=== PATIENT | male | born 1935 | race Caucasian/White ===

== ENCOUNTER → 2017-03-17 | Outpatient (CLI) | payer OTHER ==
[2017-03-17 17:26] LABS: HEMOGLOBIN 17.4 g/dL (14.0-18.0); MONOCYTES % (AUTO) 9.2 % (5-15)
[2017-03-17 17:29] LABS: BASOPHILS # (AUTO) 0.26 10*3/UL; BASOPHILS % (AUTO) 3.1 % (0-1); EOSINOPHILS # (AUTO) 0.21 10*3/UL; EOSINOPHILS % (AUTO) 2.5 % (0-8); HEMATOCRIT 50.3 % (42.0-52.0); LYMPHOCYTES # (AUTO) 1.78 10*3/uL; MEAN CORPUSCULAR HEMOGLOBIN 31.7 PG (27-31); MEAN CORPUSCULAR HGB CONC 34.6 g/dL (33-37); MEAN CORPUSCULAR VOLUME 91.6 FL (80-90); MEAN PLATELET VOLUME 10.1 FL (7.4-12.2); MONOCYTES # (AUTO) 0.76 10*3/UL (0.3-0.8); NEUTROPHILS # (AUTO) 5.27 10*3/UL; NEUTROPHILS % (AUTO) 63.6 % (50-80); RED BLOOD COUNT 5.49 10^6/uL (4.70-6.10)
[2017-03-17 17:31] LABS: BUN/CREATININE RATIO 16.66 (6-20); CALCIUM 9.9 mg/dL (8.7-10.7); CHOL/HDL RATIO 2.32 RATIO (0-4.0); LDL CHOLESTEROL,CALCULATED 75.4 mg/dL; SERUM ALBUMIN 4.1 g/dL (3.5-4.8)
[2017-03-17 17:36] LABS: WBC MORPHOLOGY COMMENT NORMAL MORPHOLOGY (NORM)
[2017-03-17 17:37] LABS: PLATELET MORPHOLOGY COMMENT NORMAL MORPHOLOGY (NORM); RBC MORPHOLOGY COMMENT NORMAL MORPHOLOGY (NORM)
[2017-03-17 19:19] LABS: FREE T4 (FREE THYROXINE) 1.15 ng/dL (0.93-1.71)
== END ==
LOC: MOB LAB 15:52
DX: C61 Malignant neoplasm of prostate (principal); J45.909 Unspecified asthma, uncomplicated; E66.9 Obesity, unspecified; E55.9 Vitamin D deficiency, unspecified
CPT/HCPCS: 36415; 80053; 80061; 82306; 84153; 84439; 84443; 85025

== ENCOUNTER 2017-04-03 16:04 | Emergency (ER) | payer OTHER ==
[2017-04-03] MEDS ORDERED: HEPARIN 5000 UNIT/1 ML ONE (16:32)
[2017-04-03] MEDS ORDERED: HEPARIN 5000 UNIT/1 ML IV ONE (16:33)
[2017-04-03 17:00] VITALS: RESP 18; TEMP 97.3
--- NOTE | 2017-04-03 17:17 | PDOC ---
Chest Pain HPI - General Chief Complaint: Upper Extremity Problem/Injury Stated Complaint: elevated Troponin Date Seen by Provider: 04/03/17 Time Seen by Provider: 16:05 Source: Patient, RN/MD, EMS Exam Limitations: POSITIVE: No limitations Treatment Prior to Arrival: REPORTS: Aspirin Nurse's Notes Reviewed & Considered: Yes EMS Report Reviewed & Considered: Verbal - History of Present Illness Initial Comments: The patient is a 81-year-old male. He states that last night around 2 AM he was awakened with bilateral arm pain and also some's substernal chest pain. This resolved after one or 2 hours. He was able to return to sleep. He made an appointment with his primary care provider for this morning and he was seen over at the primary care clinic. His primary care provider did an electrocardiogram which is normal. He also ordered cardiac enzymes and found his troponin to be elevated at 5.04; normal limits for our lab is less than 0.04. CK-MB was also elevated at 44; upper limits for lab is 5.0 patient received aspirin at the clinic, for chewed baby aspirin and then he called the ambulance who transported him to the emergency room. Patient is presently asymptomatic. Patient denies any medical problems except asthma for which he takes Symbicort. He is on no other medications. States he is allergic to penicillin and shellfish. He has had a hernia repair but no other surgery. Complete metabolic panel was normal. White blood cell count 8170, hemoglobin 17.1, hematocrit 49.8. Coag panel normal Body Location Affected: REPORTS: Chest Timing: REPORTS: Abrupt, Improved Duration: 1-3 hours (Chest pain presently resolved; onset of pain was around 2 AM) Severity: Moderate (7 or 8 on a scale of 10) Gone now, lasted (minutes):: 120 Context: REPORTS: Sleep Quality: REPORTS: Aching, "Pain" Radiation: REPORTS: Arm (R), Arm (L) Associated Symptoms: DENIES: Nausea, Vomiting, Diaphoresis, Shortness of Breath , Hurts to Breathe, Palpitations, Productive Cough (blood), Productive Cough ( sputum), Weakness, Dizziness Modifying Factors: improves with: None Reported Similar Symptoms Previously: No Recently seen/treated/hospitalized: Yes (seen in clinic earlier today as above) Any Prior Injuries Related to Current Complaint?: No - Patient Home Medications Home Medications: Home Medications Budesonide/Formoterol Fumarate [Symbicort] 2 puff INH BID #1 inh 03/06/17 - Patient Allergies Allergies/Adverse Reactions: Allergies Allergy/AdvReac Type Severity Reaction Status Date / Time Penicillins Allergy Severe HIVES Verified 04/03/17 16:16 shellfish derived Allergy Intermediate SWELLING Verified 04/03/17 16:16 Past Medical History - heen HEENT History: Hard of Hearing, Other (please comment) Additional HEENT History: left ear hard of hearing Cardiovascular History: Other (please comment) Additional Cardiovasular History: heart murmur Respiratory History: Asthma, COPD, Other (please comment) Additional Respiratory History: 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 Gastrointestinal History: Other (please comment) Additional Gastrointestinal History: HERNIA FROM LIFTING-REPAIRED Genitourinary History: Denies History Endocrine History: Denies History Musculoskeletal History: Other (please comment) Prosthesis or Implant: No Additional Musculoskeletal History: BONE REMOVAL IN LEFT KNEE AFTER INJURY Neurological History: Denies History Blood Disorders: Denies History Psychiatric History: Denies History History of Sexually Transmitted Diseases: No Cancer History: Skin Cancer Treatment / Date(s) of Treatment: RADIATION 2011 In Past Year Been Physically Harmed or Verbally Threatened: No History of MDRO: No History of Other Communicable Diseases: No Tobacco Use: Never Smoker Alcohol Use: Other Substance Use Type: None Previous Surgical History: Yes Type / Date of Surgery: LEFT KNEE AND RIGHT INGUINAL HERNIA Anesthesia Reactions: No Malignant Hyperthermia: No Significant Family History: No pertinent family hx Past Medical History Reviewed: Reviewed - No Changes ROS - Limitations ROS Limitations: No Limitations Constitution: REPORTS: Denies Symptoms Cardiovascular: REPORTS: Chest Pain Respiratory: REPORTS: Denies Resp Symptoms Neurological: REPORTS: Denies Neuro Symptoms Gastrointestinal: REPORTS: Denies GI Symptoms Endocrine: REPORTS: Denies Symptoms Musculoskeletal: REPORTS: Denies MS Symptoms Genitourinary: REPORTS: Denies Symptoms Eyes: REPORTS: Denies Symptoms ENT: REPORTS: Denies Symptoms Skin: REPORTS: Denies Skin Symptoms Lympathic: REPORTS: Denies Lympathic Symptoms Immunologic: POSITIVE: Denies Symptoms Psychiatric: POSITIVE: Denies Psych Symptoms Chest Pain PE - General Appearance General Appearance: REPORTS: Alert, Cooperative, No Acute Distress, No Evidence of Trauma - HEENT HEENT: POSITIVE: Head Inspection Nml, Eyes Inspection Nml, Ears Inspection Nml, Nose Inspection Nml, Oral/Dental Inspect. Nml, Pharynx Inspect. Nml, PERRL, EOMI - Neck Neck: REPORTS: Normal Inspection, No Carotid Bruit - Respiratory Respiratory: REPORTS: No Respiratory Distress, Breath Sounds Normal, Chest Non- Tender - Cardiovascular Cardiovascular: REPORTS: Regular Rate and Rhythm, Heart Sounds Normal, Equal Pulses, Strong Pulses, No Murmur, No Gallop, No Friction Rub, No JVD Peripheral Pulses: Radial (R): 2+, Radial (L): 2+ - Abdomen Abdomen: Soft: (All Quadrants), Normal Bowel Sounds: (All Quadrants), Denies Tenderness: (All Quadrants), No Splenomegaly: (All Quadrants), No Hepatomegaly: (All Quadrants), No Guarding: (All Quadrants), No Rebound: (All Quadrants), No Palpable Pulse: (All Quadrants), No Palpabale Mass: (All Quadrants), No Distention: (All Quadrants), No Rigidity: (All Quadrants) - Skin Skin: REPORTS: Intact, Normal For Race, Warm, Dry, No Rash - Extremities Extremity: Non-Tender: (All Extremities), Normal ROM: (All Extremities), Normal Inspection: (All Extremities) - Neurological / Psychological Neurological: POSITIVE: Oriented X3, skin drier Normal As Tested, Motor Normal, Sensation Normal, 5, 6 Images - Complete Complete: 1 - Area of described chest pain 2 - Radiation into her arm 3 - Radiation into her arm Chest Pain Progress - Results Reviewed by me Lab Results Reviewed: Yes (elevated troponin and CK-MB as above) Lab Results:: Laboratory Results 04/03/17 Range/Units 16:20 PT 10.1 (9.7-11.4) secs INR 0.98 (0.00-5.90) N/A APTT 26.7 (22.6-31.3) SECS EKG Interpreted/Reviewed By Me:: Yes EKG Interpretation:: POSITIVE: Normal Sinus Rhythm, Normal Rate, Normal QRS, Normal ST/T - Patient's Progress Pain Medication Addressed: POSITIVE: Not Applicable (Patient pain free at this time) School/Work Release Addressed: POSITIVE: Not Applicable Re-Examine Time: 19:10 Re-Examine Comment: Patient remained pain-free while in the emergency room. Cardiology at [facility] contacted; this hospital is full and [place] [facility] [place] Spoke with Dr. Montero , cardiology and Dr. Ochoa, hospitalist who has accepted the patient. Patient was started on heparin, 4000 unit bolus and then 1000 units per hour per non-STEMI protocol. [place] [facility] [place]: POSITIVE: Unchanged, Re-Examined - Consult Consult (If Yes, Name of Consulting MD & Time Called): Yes (Dr. Montero, cardiology and hospitalist at [facility], 1907) Consulting MD will see pt:: POSITIVE: Recommended Transfer Counseled: POSITIVE: Patient, RE: Lab Results, RE: DX, RE: Need for F/U Patient Care Time - Estimated PCT Patient Care Time (In Minutes): 53 Vital Signs - Recent Vital Signs Vital Signs: Vital Signs (Last 8 hours) Temp Pulse Resp BP Pulse Ox 04/03/17 16:04 97.3 F 66 18 155/96 97 - VS Reviewed Vital Signs Reviewed: Yes Discharge Clinical Impression: Non-STEMI (non-ST elevated myocardial infarction) Discharge Disposition: Transferred to Short Term Facility Condition: Fair Date Decision to Transfer to Another Facility: 04/03/17 Time Decision to Transfer to Another Facility: 16:15
--- NOTE | 2017-04-03 17:19 | DI ---
XR CXR 1VW,04/03/2017 4:20 PM: Clinical History: Elevated troponins. Previous Exam: October 22, 2014 Findings: A single frontal radiograph of the chest is obtained, and demonstrates clear lungs. The cardiomediast inum and bony thorax are unremarkable. Overlying EKG leads are seen. Impression: No acute disease.
--- NOTE | 2017-04-03 17:25 | EKG ---
[address] [address] Measurements Intervals [place] Rate: 67 P: 55 AL: 182 QRS: 16 QRSD: 89 T: 87 QT: 389 QTc: 405 Interpretive Statements SINUS RHYTHM Compared to ECG 04/03/2017 14:43:19 No significant changes Electronically Signed On 04-03-17 17:58:28 MDT by Krunal Polk [email or web address]
== END 2017-04-03 17:45 | disposition home or self-care (01) ==
LOC: ER 16:04
DX: I21.4 Non-ST elevation (NSTEMI) myocardial infarction (principal); M79.602 Pain in left arm; M79.601 Pain in right arm; R79.89 Other specified abnormal findings of blood chemistry; R07.9 Chest pain, unspecified
CPT/HCPCS: 36415; 71010; 80053; 82553; 84484; 85025; 85610; 85730; 87088; 93005; 93010; 96374; 99285; J1644

== ENCOUNTER → 2017-04-03 | Outpatient (CLI) | payer OTHER ==
--- NOTE | 2017-04-03 14:37 | EKG ---
[address] [address] Measurements Intervals [place] Rate: 74 P: 59 GA: 172 QRS: 54 QRSD: 87 T: 84 QT: 381 QTc: 409 Interpretive Statements SINUS RHYTHM No previous ECG available for comparison Electronically Signed On 04-03-17 17:58:38 MDT by Krunal Polk [id number]
[2017-04-03 14:57] LABS: BASOPHILS % (AUTO) 1.2 % (0-1); EOSINOPHILS # (AUTO) 0.16 10*3/UL; HEMATOCRIT 49.8 % (42.0-52.0); HEMOGLOBIN 17.1 g/dL (14.0-18.0); LYMPHOCYTES # (AUTO) 1.59 10*3/uL; MEAN CORPUSCULAR HEMOGLOBIN 31.2 PG (27-31); MEAN CORPUSCULAR HGB CONC 34.3 g/dL (33-37); MEAN CORPUSCULAR VOLUME 90.9 FL (80-90); MEAN PLATELET VOLUME 9.4 FL (7.4-12.2); MONOCYTES # (AUTO) 0.78 10*3/UL (0.3-0.8); MONOCYTES % (AUTO) 9.5 % (5-15); NEUTROPHILS # (AUTO) 5.52 10*3/UL; NEUTROPHILS % (AUTO) 67.6 % (50-80); RED BLOOD COUNT 5.48 10^6/uL (4.70-6.10)
[2017-04-03 14:58] LABS: PLATELET MORPHOLOGY COMMENT NORMAL MORPHOLOGY (NORM); RBC MORPHOLOGY COMMENT NORMAL MORPHOLOGY (NORM); WBC MORPHOLOGY COMMENT NORMAL MORPHOLOGY (NORM)
[2017-04-03 15:13] LABS: CALCIUM 9.9 mg/dL (8.7-10.7); SERUM ALBUMIN 4.1 g/dL (3.5-4.8)
[2017-04-03 15:57] LABS: TROPONIN I 5.04 ng/mL (< 0.040)
== END ==
LOC: MOB LAB 14:26
PROVIDERS: ATTEND Physician Assistant
DX: R42 Dizziness and giddiness (principal); R06.02 Shortness of breath; R30.0 Dysuria
CPT/HCPCS: 36415; 80053; 82553; 84484; 85025; 87088; 93005; 93010

== ENCOUNTER → 2017-04-24 | Outpatient (CLI) | payer OTHER | LOC: MMPC 11:11 | DX: I35.0 Nonrheumatic aortic (valve) stenosis (principal); J45.909 Unspecified asthma, uncomplicated; K21.9 Gastro-esophageal reflux disease without esophagitis; C61 Malignant neoplasm of prostate; I25.10 Atherosclerotic heart disease of native coronary artery without angina pectoris; Z95.2 Presence of prosthetic heart valve | CPT/HCPCS: 99213; G0463 ==

== ENCOUNTER → 2017-05-17 | Outpatient (CLI) | payer OTHER ==
[2017-05-17 16:31] LABS: BASOPHILS # (AUTO) 0.11 10*3/UL; BASOPHILS % (AUTO) 1.5 % (0-1); EOSINOPHILS # (AUTO) 0.16 10*3/UL; EOSINOPHILS % (AUTO) 2.3 % (0-8); HEMATOCRIT 43.9 % (42.0-52.0); HEMOGLOBIN 14.9 g/dL (14.0-18.0); LYMPHOCYTES # (AUTO) 1.36 10*3/uL; MEAN CORPUSCULAR HEMOGLOBIN 31.3 PG (27-31); MEAN CORPUSCULAR HGB CONC 33.9 g/dL (33-37); MEAN CORPUSCULAR VOLUME 92.2 FL (80-90); MEAN PLATELET VOLUME 9.5 FL (7.4-12.2); MONOCYTES # (AUTO) 0.71 10*3/UL (0.3-0.8); NEUTROPHILS # (AUTO) 4.75 10*3/UL; NEUTROPHILS % (AUTO) 66.9 % (50-80); RED BLOOD COUNT 4.76 10^6/uL (4.70-6.10)
[2017-05-17 16:37] LABS: PLATELET MORPHOLOGY COMMENT NORMAL MORPHOLOGY (NORM); RBC MORPHOLOGY COMMENT NORMAL MORPHOLOGY (NORM); WBC MORPHOLOGY COMMENT NORMAL MORPHOLOGY (NORM)
== END ==
LOC: MOB LAB 15:39
DX: I35.0 Nonrheumatic aortic (valve) stenosis (principal); K21.9 Gastro-esophageal reflux disease without esophagitis
CPT/HCPCS: 36415; 80048; 85025

== ENCOUNTER 2017-09-14 11:41 | Inpatient (IN) ==
[2017-09-14] MEDS ORDERED: NORMAL SALINE 10 ML SYRINGE FLUSH IVP PRN ×2 (12:25→17:43)
[2017-09-14] MEDS ORDERED: DIPH,PERTUSS,TET(ADACEL) VAC/PF 0.5 ML (Tdap) IM ONE (12:25)
[2017-09-14 12:36] LABS: BILIRUBIN,URINE SMALL (NEG); CLARITY,URINE CLEAR (CLEAR); GLUCOSE, URINE (UA) NEGATIVE (NEG); NITRATE,URINE NEGATIVE (NEG); OCCULT BLOOD,URINE NEGATIVE (NEG); PH,URINE 6.5 (5.0-8.5); PROTEIN,URINE 100 mg/dl (NEG)
[2017-09-14 12:37] LABS: COLOR,URINE AMBER (Y)
[2017-09-14 12:44] LABS: URINE SAMPLE TYPE VOIDED SPECIMEN
--- NOTE | 2017-09-14 12:47 | EKG ---
[address] [address] Measurements Intervals [place] Rate: 84 P: FL: 0 QRS: 46 QRSD: 93 T: 79 QT: 372 QTc: 413 Interpretive Statements SINUS RHYTHM WANDERING BASELINE Compared to ECG 04/03/2017 16:39:04 No significant change Electronically Signed On 09-14-17 17:20:04 MDT by Krunal Polk [email or web address]
[2017-09-14 12:58] LABS: BASOPHILS # (AUTO) 0.05 10*3/UL; BASOPHILS % (AUTO) 0.5 % (0-1); EOSINOPHILS # (AUTO) 0.01 10*3/UL; EOSINOPHILS % (AUTO) 0.1 % (0-8); Hematocrit [HCT] 41.5 % (42.0-52.0); Hemoglobin [HGB] 14.3 g/dL (14.0-18.0); MEAN CORPUSCULAR HGB CONC 34.5 g/dL (33-37); MEAN PLATELET VOLUME 10.2 FL (7.4-12.2); MONOCYTES # (AUTO) 1.06 10*3/UL (0.3-0.8); MONOCYTES % (AUTO) 10.9 % (5-15); NEUTROPHILS # (AUTO) 7.79 10*3/UL; NEUTROPHILS % (AUTO) 80.1 % (50-80); RED BLOOD COUNT 4.61 10^6/uL (4.70-6.10)
[2017-09-14 12:59] LABS: PLATELET MORPHOLOGY COMMENT NORMAL MORPHOLOGY (NORM); RBC MORPHOLOGY COMMENT NORMAL MORPHOLOGY (NORM); WBC MORPHOLOGY COMMENT NORMAL MORPHOLOGY (NORM)
[2017-09-14 13:08] LABS: BLOOD UREA NITROGEN 24 mg/dL (7-22); LIPASE 67 IU/L (23-300); SERUM ALBUMIN 4.1 g/dL (3.5-4.8)
[2017-09-14] MEDS: Sodium Chloride 0.9% 1,000 ML PRIMARY IV ONE ×2 (13:09→17:58)
--- NOTE | 2017-09-14 13:53 | DI ---
CT Cervical Spine WO Contrast,09/14/2017 12:27 PM: Clinical History: Trauma Previous Exam: January 17, 2012 Findings: Multiple helically acquired CT images are obtained through the cervical spine without contrast, and d emonstrate diffuse degenerative changes of cervical spine worst at the C5/6 level with near complete loss of intervertebral disc height with endplate osteophyte formation and uncovertebral joint osteoph yte formation. There is some facet hypertrophy noted. The prevertebral soft tissues are unremarkable. The base of the skull is also unremarkable. The prevertebral soft tissues are unremarkable. The thyroid is unremarkable. The lung apices are clear. The major vascular structures are unremarkable. A few peripheral vascular calcifications are seen. Impression: Diffuse degenerative changes of the cervical spine without fractures.
--- NOTE | 2017-09-14 13:56 | DI ---
CT Head WO Contrast,09/14/2017 12:27 PM: Clinical History: Trauma Previous Exam: None at this facility. Findings: Multiple helically acquired CT images are obtained through the brain without contrast, and demonstrat e diffuse age-related volume loss. There is no mass, hemorrhage or midline shift. There is some thick ening of the soft tissues of the frontal scalp. No fractures are seen. Impression: No acute intracranial pathology.
--- NOTE | 2017-09-14 14:06 | DI ---
CT Maxfacial WO/con Face Sinus,09/14/2017 12:29 PM: Clinical History: Status post fall with facial trauma. Previous Exam: None at this facility. Findings: Multiple helically acquired CT images are obtained through the face without contrast, and demonstrate a slightly displaced fracture through the nasal bones worse on the right the left. The paranasal sinuses are unremarkable. Diffuse degenerative changes of the cervical spine are seen. The mandible is unremarkable. There is a heterogeneously lucent lesion within the sphenoid bone which demonstrates no evidence of e xpansion no cortical breakthrough and no evidence of periosteal reaction. This lesion is well-circumscribed with a narrow zone of transition. This is largely fat density. Impression: Displaced fracture of the right nasal bone of unknown chronicity. 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
--- NOTE | 2017-09-14 14:34 | DI ---
CT Chest W Contrast,09/14/2017 12:27 PM: Clinical History: Trauma. Previous Exam: None at this facility. Findings: Multiple helically acquired CT images are obtained through the chest following intravenous administra tion of 75 cc of Isovue 300, and demonstrate clear lungs. There is an endograft noted in the region of the aortic valve. Coronary calcifications are seen. Peripheral vascular calcifications are also noted. The thyroid is unremarkable. The pulmonary arteries are normal. There is no mediastinal lymphadenopathy. The upper abdomen is unremarkable. There are compression deformities involving the third and fourth superior endplates of the thoracic s pine. These are very mild in degree without significant loss of vertebral body height. Mild degenerative facet hypertrophy is noted as well. Impression: 1. Compression fractures of the superior endplates of the third and fourth thoracic vertebral bodies. These are mild in degree, and demonstrate no significant loss of intervertebral disc height.
--- NOTE | 2017-09-14 14:38 | DI ---
CT Abdomen/Pelvis W Contrast,09/14/2017 12:27 PM: Clinical History: Trauma Previous Exam: None at this facility. Findings: Multiple helically acquired CT images are obtained through the abdomen and pelvis following the intra venous administration of contrast. There is a fat-containing left inguinal hernia. Multiple colonic diverticula are noted without evidence of acute diverticulitis. The liver, gallbladder, spleen, pancreas, adrenals and kidneys are unremarkable. There is no mesenter ic or retroperitoneal lymphadenopathy. Multiple colonic diverticula are noted without evidence of acute diverticulitis. Diffuse degenerative changes of the spine are noted without acute fractures. Impression: No acute intra-abdominal pathology.
[2017-09-14] MEDS ORDERED: HYDROcodone-APAP 5 MG -325 MG TABLET PO PRN (17:43)
[2017-09-14] MEDS ORDERED: DOCUSATE 100 MG CAPSULE PO PRN (17:43)
[2017-09-14] MEDS ORDERED: ACETAMINOPHEN 325 MG TABLET PO PRN (17:43)
[2017-09-14] MEDS ORDERED: ONDANSETRON 4 MG/2 ML VIAL IVP PRN (17:43)
[2017-09-14] MEDS ORDERED: LIDOCAINE W/ SODIUM BICARB 0.5 ML SYR SUBD PRN (17:43)
[2017-09-14] MEDS ORDERED: CALCIUM CARBONATE 500 MG (TUMS) CHEWABLE TABLET PO PRN (17:43)
[2017-09-14] MEDS ORDERED: POTASSIUM CHLORIDE 20 MEQ TAB PO ONE (17:46)
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
[2017-09-14] MEDS: ERYTHROMYCIN BASE 1 GM EYE OINT EACH EYE SCH (20:45)
[2017-09-14] MEDS: Metoprolol TARTRATE Tab 25 MG TAB PO SCH (20:45)
[2017-09-14] MEDS: ATORVASTATIN 40 MG TABLET PO SCH (20:45)
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
[2017-09-15] MEDS: Non-Formulary Drug (Budesonide/Formoterol Fumarate [Symbicort] 2 PUFF) INH SCH ×2 (05:28→18:37)
[2017-09-15 07:04] LABS: BLOOD UREA NITROGEN 22 mg/dL (7-22)
[2017-09-15] MEDS: PANTOPRAZOLE 40 MG TABLET PO SCH (08:34)
[2017-09-15] MEDS: ERYTHROMYCIN BASE 1 GM EYE OINT EACH EYE SCH ×2 (08:34→20:47)
[2017-09-15] MEDS: Metoprolol TARTRATE Tab 25 MG TAB PO SCH ×2 (08:35→20:47)
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
[2017-09-15] MEDS: HYDROcodone-APAP 5 MG -325 MG TABLET PO PRN ×3 (11:35→20:46)
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
--- NOTE | 2017-09-15 14:52 | PDOC(PROG) ---
Date and Time of Service: 09/15/2017, 1450 Interval History: No chest pain, no shortness breath, no nausea or vomiting. Patient states that he felt much better after therapy and is really interested in working on balance. He states that is "tricky". He did very well with heat therapy per the physical therapy note and the patient notes that as well and the patient requests that he would like to stay through Monday to continue to work with therapy and pain control for his back and tongue. Objective : Data - Labs CBC and BMP: 09/14/17 12:50 09/15/17 06:30 Objective : Exam - General General Appearance: No Acute Distress, Cooperative Additional General Exam Details: Vital Signs (24 hrs) Temp Pulse Pulse Pulse Resp BP BP 09/15/17 13:00 97.6 F 71 20 121/50 09/15/17 08:11 97.2 F 61 20 103/56 09/15/17 04:38 97.2 F 68 20 125/54 09/15/17 04:05 09/15/17 03:00 66 09/15/17 01:00 97.4 F 73 20 127/60 09/14/17 21:00 87 18 120/65 09/14/17 19:45 09/14/17 19:00 74 74 18 09/14/17 16:47 97.8 F 74 18 138/56 09/14/17 16:31 98.6 F 82 18 137/81 09/14/17 16:24 74 74 18 Pulse Ox 09/15/17 13:00 94 09/15/17 08:11 95 09/15/17 04:38 93 09/15/17 04:05 93 09/15/17 03:00 09/15/17 01:00 93 09/14/17 21:00 09/14/17 19:45 90 09/14/17 19:00 09/14/17 16:47 96 09/14/17 16:31 95 09/14/17 16:24 - Head Additional Head Exam Details: Significant facial bruising. Scleral redness on the right, but not a hyphema. - ENT ENT Exam: Mucous Membranes Moist Additonal ENT Exam Details: Tongue and mouth look cleaner and polisher overall. This will take a while to heal. - Respiratory Respiratory Exam: Clear to Auscultation - Bilaterally, Breathing Non Labored - Cardiovascular Cardiovascular Exam: RRR, No Murmur, No Clicks, No Gallops, No Rubs, No JVD - GI/Abdominal GI/Abdominal Exam: Normal Bowel Sounds, Non Tender, Non Distended, Soft - Extremities Extremities Exam: No Clubbing Present, No Edema Present, No Cyanosis Present - Neurological Neurological Exam: Alert, Oriented x 3, No Facial Droop, Speech Intact / Clear, Moves All Extremities Equally - Psychiatric Psychiatric Exam: Normal Affect, Normal Mood Assessment and Plan - Patient Problems (1) Compression fx, thoracic spine Current Visit: Yes Status: Acute Code(s): S22.000A - Wedge compression fracture of unspecified thoracic vertebra, initial encounter for closed fracture Qualifiers: Encounter type: initial encounter Fracture type: closed Qualified Code(s) : S22.000A - Wedge compression fracture of unspecified thoracic vertebra, initial encounter for closed fracture (2) Syncope and collapse Current Visit: Yes Status: Acute Code(s): R55 - Syncope and collapse (3) Coronary artery disease Current Visit: Yes Status: Acute Code(s): I25.10 - Atherosclerotic heart disease of [place] coronary artery without angina pectoris Qualifiers: Coronary Disease-Associated Artery/Lesion type: [place] artery [place] vs. transplanted heart: [place] heart Associated angina: without angina Qualified Code(s): I25.10 - Atherosclerotic heart disease of [place] coronary artery without angina pectoris (4) Aortic valve disease Current Visit: Yes Status: Acute Code(s): I35.9 - Nonrheumatic aortic valve disorder, unspecified (5) Asthma Current Visit: Yes Status: Acute Code(s): J45.909 - Unspecified asthma, uncomplicated Qualifiers: Asthma severity: mild Asthma persistence: intermittent Asthma complication type: uncomplicated Qualified Code(s): J45.20 - Mild intermittent asthma, uncomplicated (6) Hypercholesterolemia Current Visit: Yes Status: Acute Code(s): E78.00 - Pure hypercholesterolemia , unspecified - Assessment / Plan Additional Assessment/Plan Details: In terms of the recent angioplasty in March, I curbside of the career guidance technician regarding length of Plavix therapy post angioplasty and 3 months would be a recommendation without stent placement. He can probably stop Plavix from that perspective. I am not aware of data for dual antiplatelet therapy for valvular replacement intravascularly or intra-arterially with catheter versus open heart valvular repair, so at this time I think that the patient's best bet would be to go on aspirin when he leaves the hospital. Continue to monitor with telemetry monitoring. Thus far no arrhythmias noted. I think the patient would benefit greatly from a Holter monitor. continue PT and OT. Balance therapy. Tylenol and Motrin for pain. I have opiates written, but would be very hesitant to discharge on opiates. Patient does have a plan to go home with Vonnie for further monitoring post hospital stay.
--- NOTE | 2017-09-15 16:15 | PT.PROG ---
Progress Note Progress Note: S: Pt. reported minimal pain in neck, even with movement. He said the massage and tape this morning helped. O: Pt. completed walk down to rehab center with contact guard. Pt. completed balance activities including a DGI, hurdles, steps, transfers, and cone drills. Dynamic gait index score: 10/13. Pt. was at 4/10 on RPE scale post treatment. A: Pt. tolerated balance and physical activity well today. He was able to pick and shovel man a cone off the floor with no pain and with good form. Pt. exhibited minor gait deviations throughout treatment, but he never required more that contact guard. Pain in neck/thoracic region was very minimal. P: Continue with functional activity and modalities for pain until pt. is ready for discharge.
--- NOTE | 2017-09-15 16:45 | OT.PROG ---
Progress Note Progress Note: S: pt states he wants to go home to get some things from his home and would hope to return right after. O: pt was seen in his room in the p.m He complete UE exercises in his room with GTB in all ranges x25 to increase his strength to assist with postural transitions. He only stopped short with bicep flex of RUE as he reported pain. A: pt presents with good strength in UE, but continue to monitor pain in R shoulder. P: continue per POC.
[2017-09-15] MEDS: FLUTICASONE/SALMETEROL 250/50 UD INHALER INH SCH (19:09)
[2017-09-15] MEDS: ATORVASTATIN 40 MG TABLET PO SCH (20:46)
[2017-09-16] MEDS: FLUTICASONE/SALMETEROL 250/50 UD INHALER INH SCH ×2 (06:11→19:23)
[2017-09-16] MEDS: Metoprolol TARTRATE Tab 25 MG TAB PO SCH ×2 (08:00→20:20)
[2017-09-16] MEDS: ERYTHROMYCIN BASE 1 GM EYE OINT EACH EYE SCH ×2 (08:00→20:22)
[2017-09-16] MEDS: PANTOPRAZOLE 40 MG TABLET PO SCH (08:00)
[2017-09-16] MEDS: HYDROcodone-APAP 5 MG -325 MG TABLET PO PRN (08:01)
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
--- NOTE | 2017-09-16 11:50 | PT.PROG ---
Progress Note Progress Note: S. Patient stated that he is having sharp pains in his neck. O. Patient ambulated 150 feet around the nurses station, then performed standing balance activities in the form of; hip flexion/extension, abduction/ adduction, marches x 10, balance grid x 3, and single leg stance 2x30 seconds. Patient was left in his chair with alarm and call light. A. Patient tolerated therapy fair, he became fatigued during ambulation and balance exercises, he required short rest breaks however was able to complete all tasks. Patient would continue to benefit from skilled therapy at this time. P. Continue POC.
[2017-09-16] MEDS: IBUPROFEN 600 MG TABLET PO PRN (17:40)
[2017-09-16] MEDS: ATORVASTATIN 40 MG TABLET PO SCH (20:19)
[2017-09-17] MEDS: FLUTICASONE/SALMETEROL 250/50 UD INHALER INH SCH ×2 (07:15→19:05)
[2017-09-17] MEDS: Metoprolol TARTRATE Tab 25 MG TAB PO SCH ×2 (08:58→20:11)
[2017-09-17] MEDS: PANTOPRAZOLE 40 MG TABLET PO SCH (08:58)
[2017-09-17] MEDS: ERYTHROMYCIN BASE 1 GM EYE OINT EACH EYE SCH ×2 (08:59→20:12)
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
[2017-09-17] MEDS: IBUPROFEN 600 MG TABLET PO PRN (16:16)
[2017-09-17] MEDS: ATORVASTATIN 40 MG TABLET PO SCH (20:11)
[2017-09-18] MEDS: IBUPROFEN 600 MG TABLET PO PRN ×2 (05:06→14:13)
[2017-09-18] MEDS: FLUTICASONE/SALMETEROL 250/50 UD INHALER INH SCH (06:54)
[2017-09-18 06:56] VITALS: RESP 18
[2017-09-18] MEDS: ERYTHROMYCIN BASE 1 GM EYE OINT EACH EYE SCH (08:18)
[2017-09-18] MEDS: Metoprolol TARTRATE Tab 25 MG TAB PO SCH (08:19)
[2017-09-18] MEDS: PANTOPRAZOLE 40 MG TABLET PO SCH (08:19)
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
--- NOTE | 2017-09-18 11:22 | PT.PROG ---
Progress Note Progress Note: S. Patient stated that he wants to go home. However is planning on staying with a friend until he is able to go home. O. Patient ambulated 175 feet to the therapy gym where he used the nu-step x 8 minutes, then performed balance grid x 3, standing balance 2x30 seconds, box step ups (#2 box) x 10, Patient ambulated 175 feet back to his room where he was left in the restroom and nursing was notified. A. Patient was unable to perform all exercises this morning due to needing to use the restroom. Patient requires SBG assist with ambulation. Patient becomes very unstable during balance exercises and struggled with box step ups. Patient has not attempted stair training yet. Patient would continue to benefit from skilled therapy at this time. P. Continue POC. Re-assess and stair training scheduled for 1300 09/18.
[2017-09-18 12:10] VITALS: BP 124/58; TEMP 98.1; O2SAT 94
--- NOTE | 2017-09-18 13:53 | PT.PROG ---
Progress Note Progress Note: S. Patient states that he feels ready to go home. O. Patient ambulated 160 feet to the stair well then ascended and descended 12 stairs. then ambulated into the therapy gym where he performed balance grid x3, standing hip flexion/extension, abduction/adduction, marches, heel toe raises, sit to stands all x 10 bilaterally. Patient performed michelle step overs 4 laps with 3 hurdles. Patient was left with OT for CPT. A. Patient tolerated therapy well this afternoon. He was able to perform balance exercises much easier this afternoon compared to previous treatments. Patient continues to require verbal cues to complete all tasks however has progressed well. Patient has met all goals at this time. Patient would continue to benefit from outpatient therapy. P. Continue POC.
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
--- NOTE | 2017-09-18 14:45 | OT.PROG ---
Progress Note Progress Note: S: Pt. reports that he is doing well today. Pt. reports that he does not use pill boxes for medication management tasks and that he only takes 2 pills per day. O: Pt. was seen from 13:15 to 14:15 for skilled occupational therapy session. Pt. participated in the Cognitive Performance Test today to assess cognitive assistance needed for return to home. Pt. completed 3 of the 5 subtasks. Pt. scored a 4.5/6 on the medication management subtask. Pt. required verbal cues to use morning and evening pill boxes, to correct errors with all 4 medications , and specific verbal cues on when and were to place the medications correctly. In addition, pt. was unable to determine what "as needed" on a pill bottle means for a pain medication. For the shopping subtask, pt scored a 5.0/6.0. Pt. was able to select a pair of gloves that fit, pick the gloves that he was able to afford and pay with the exact change, however did require assistance to locate all of the money in the wallet. For the phone subtask pt. scored a 4.0/ 6.0. Pt. required assistance to find a number in the phone book and pt. was able to dial the number correctly and ask a question and relay the answer. It is important to note that pt. did not have glasses during task which may have contributed to his ability to find a number in the phone book. A: Based on the score of the CPT, pt. scored a 4.5. This score lands in the middle of a 4.6, which means pt. may live alone with daily monitoring and a 4.4 which means pt. requires shared living arrangements with supervision. Pt. will perform better with cognitive functioning in familiar situations and may require assistance with all novel situation. In addition, pt. requires extra time to process new information. At this time it is recommended for pt. to discharge to a situation where daily monitoring and assistance may be provided. P: Pt. is discharging to live with family friend. RAKEL Santiago
== END 2017-09-18 14:48 | disposition home or self-care (01) | DRG 552 ==
LOC: ER 11:46 → MED/SURG 16:00
PROVIDERS: ADMIT Family Medicine; ATTEND Family Medicine